=== PATIENT | female | born 2000 | race Caucasian/White ===

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

== ENCOUNTER 2019-08-25 22:24 | Inpatient (IN) ==
[2019-08-25 23:31] LABS: Basophils % 0.3 % (0.0-0.8); Eosinophils # 0.2 10*3/uL (0.0-0.87); Eosinophils % 1.6 % (0.00-10.9); Hematocrit 36.8 VOL% (35.7-47.0); Hemoglobin 11.7 GM/DL (12.0-16.0); Immature Granulocytes % 0.8 %; Immature Granulocytes Absolute 0.09 #; Lymphocytes # 2.2 10*3/uL (1.4-4.0); Lymphocytes % 19.7 % (21.3-54.2); Mean Corpuscular HGB Conc 31.8 GM/DL (32-36); Mean Corpuscular Volume 87.6 FL (87-102); Mean Platelet Volume 10.5 FL (9.6-12.0); Monocytes % 6.8 % (1.7-12.7); Neutrophils % 70.8 % (38.7-73.9); Platelet Count 240 T/CUMM (130-400); Red Cell Distribution Width 17.1 % (9.3-17.3); White Blood Count 10.9 T/CUMM (4-12)
[2019-08-26 00:04] LABS: Albumin 2.4 G/DL (3.4-5.0); Bilirubin,Direct 0.15 MG/DL (0.0-0.20); Bilirubin,Indirect 1.1 MG/DL (0.0-1.0); Bilirubin,Total 1.2 MG/DL (0.2-1.0); Total Protein 6.4 G/DL (6.4-8.3)
[2019-08-26 00:44] LABS: Albumin 2.3 G/DL (3.4-5.0); Bilirubin,Total 0.4 MG/DL (0.2-1.0); Calcium 8.7 MG/DL (8.5-10.1); Total Protein 6.4 G/DL (6.4-8.3); Uric Acid 3.4 MG/DL (2.6-6.0)
[2019-08-26] MEDS ORDERED: hydrOXYzine HCL 25 MG/1 ML VIAL IM PRN ×2 (01:11→16:42)
[2019-08-26] MEDS: LACTATED RINGERS 1,000 ML IV SCH ×3 (01:41→18:12)
[2019-08-26] MEDS ORDERED: LACTATED RINGERS 1,000 ML IV SCH (02:00)
[2019-08-26] MEDS: ONDANSETRON 4 MG/2 ML VIAL IV PRN ×2 (04:35→15:23)
[2019-08-26] MEDS ORDERED: OXYTOCIN/LR 20 UNIT/1,000 ML BAG IV ONE (08:03)
[2019-08-26] MEDS: OXYTOCIN/LR 20 UNIT/1,000 ML BAG IV SCH (08:22)
[2019-08-26] MEDS ORDERED: NIFEdipine 10 MG CAPSULE PO ONE (12:06)
[2019-08-26] MEDS ORDERED: BUTORPHANOL 1 MG/ML VIAL IV ONE (15:19)
[2019-08-26] MEDS ORDERED: NALOXONE 0.4 MG/ML VIAL IV PRN (16:42)
[2019-08-26] MEDS ORDERED: FAMOTIDINE 20 MG/2 ML VIAL IV ONE (16:42)
[2019-08-26] MEDS ORDERED: ONDANSETRON 4 MG/2 ML VIAL IV ONE (16:42)
[2019-08-26] MEDS ORDERED: PROMETHAZINE 25 MG/1 ML VIAL IM ONE (16:42)
[2019-08-26] MEDS ORDERED: diphenhydrAMINE 50 MG/1 ML VIAL IV PRN ×2 (16:42)
[2019-08-26] MEDS ORDERED: CITRIC ACID/SODIUM CITRATE 30 ML UDCUP PO ONE (16:42)
[2019-08-26] MEDS ORDERED: ePHEDrine 50 MG/ML AMP IV PRN (16:42)
[2019-08-26] MEDS ORDERED: fentaNYL 2 MCG/ROPIV 0.2% EPID 100 ML EPIDURAL SCH (17:00)
[2019-08-26 20:34] LABS: Apearance,Urine CLEAR (Clear); Bacteria,Urine Occasional /HPF (Few); Bilirubin,Urine Negative (Negative); Blood, Urine Negative (Negative); Glucose,Urine (UA) Negative (Negative); Ketones,Urine 20 mg/dL (Negative); Mucus,Urine Occasional /LPF (Occasional); Nitrite,Urine Negative (Negative); Protein,Urine Negative; RBC,Urine 1 /HPF (0-4); Squamous Epithelial Cell,Urine Occasional /HPF (0-10); Urine Color Amber (Yellow); Urine Specific Gravity 1.018 (1.001-1.035); Urine Urobilinogen < 2.0 EU/DL (0.2-1.0); WBC,Urine 2 /HPF (0-6)
[2019-08-27] MEDS: OXYTOCIN/LR 20 UNIT/1,000 ML BAG IV SCH (00:25)
[2019-08-27] MEDS ORDERED: ACETAMINOPHEN 500 MG TABLET PO ONE (04:44)
[2019-08-27] MEDS ORDERED: METHYLERGONOVINE 0.2 MG/1 ML AMP ONE (05:21)
[2019-08-27] MEDS ORDERED: CARBOPROST TROMETHAMINE 250 MCG/ML AMP IM ONE (05:21)
[2019-08-27] MEDS ORDERED: TRANEXAMIC ACID 1,000 MG/10 ML VIAL ONE (05:21)
[2019-08-27] MEDS ORDERED: miSOPROStoL 200 MCG TABLET ONE (05:21)
[2019-08-27] MEDS ORDERED: LIDOCAINE 1% 50 ML VIAL ONE (05:56)
[2019-08-27 06:14] LABS: Cord Arterial Blood HCO3 19.6 MMOL/L
[2019-08-27 06:15] LABS: Cord Venous Blood HCO3 18.6 MMOL/L; Cord Venous Blood PO2 35.8 MMHG
[2019-08-27] MEDS ORDERED: HYDROCORTISONE 2.5% RECTAL CREAM 30 GM TUBE TOP PRN (06:19)
[2019-08-27] MEDS ORDERED: BISACODYL 10 MG SUPP RECTAL PRN (06:19)
[2019-08-27] MEDS ORDERED: ACETAMINOPHEN 325 MG TABLET PO PRN (06:19)
[2019-08-27] MEDS ORDERED: DIPH/TET/ACEL PERT BOOSTER VACCINE 0.5 ML VIAL IM ONE (06:19)
[2019-08-27] MEDS ORDERED: OXYTOCIN/LR 20 UNIT/1,000 ML BAG IV ONE (06:19)
[2019-08-27] MEDS ORDERED: BENZOCAINE 20%/MENTHOL 0.5% SPRAY 56 GM CAN TOP PRN (06:19)
[2019-08-27] MEDS ORDERED: WITCH HAZEL PADS 100/JAR TOP PRN (06:19)
[2019-08-27] MEDS ORDERED: RHO(D) IMMUNE GLOBULIN 300 MCG SYRINGE IM ONE (06:19)
[2019-08-27] MEDS ORDERED: ONDANSETRON 4 MG/2 ML VIAL IV PRN (06:19)
[2019-08-27] MEDS ORDERED: LANOLIN 50% CREAM 0.3 OZ TUBE TOP PRN (06:19)
[2019-08-27] MEDS ORDERED: MEASLES/MUMPS/RUBELLA VACCINE 0.5 ML VIAL SUBCUT ONE (06:19)
[2019-08-27] MEDS: IBUPROFEN 800 MG TABLET PO PRN (07:28)
[2019-08-27] MEDS: DOCUSATE SODIUM 100 MG CAPSULE PO SCH ×2 (18:48→21:33)
[2019-08-27] MEDS: oxyCODONE/ACETAMINOPHEN 5-325 MG TABLET PO PRN (18:49)
[2019-08-28] MEDS: oxyCODONE/ACETAMINOPHEN 5-325 MG TABLET PO PRN ×3 (03:37→23:30)
[2019-08-28] MEDS: IBUPROFEN 800 MG TABLET PO PRN ×3 (03:37→20:30)
[2019-08-28 04:02] LABS: Basophils # 0.1 10*3/uL (0.0-0.2); Basophils % 0.4 % (0.0-0.8); Eosinophils # 0.2 10*3/uL (0.0-0.87); Eosinophils % 1.5 % (0.00-10.9); Hematocrit 29.7 VOL% (35.7-47.0); Hemoglobin 9.8 GM/DL (12.0-16.0); Immature Granulocytes % 1.1 %; Immature Granulocytes Absolute 0.15 #; Lymphocytes # 2.8 10*3/uL (1.4-4.0); Lymphocytes % 21.3 % (21.3-54.2); Mean Corpuscular Volume 85.6 FL (87-102); Mean Platelet Volume 10.7 FL (9.6-12.0); Monocytes % 8.1 % (1.7-12.7); Neutrophils % 67.6 % (38.7-73.9); Platelet Count 178 T/CUMM (130-400); Red Blood Count 3.47 MC/CUMM (3.8-5.5); Red Cell Distribution Width 17.2 % (9.3-17.3); White Blood Count 13.1 T/CUMM (4-12)
[2019-08-28] MEDS: DOCUSATE SODIUM 100 MG CAPSULE PO SCH ×2 (09:30→20:56)
[2019-08-29] MEDS ORDERED: ONDANSETRON 4 MG TABLET PO PRN (01:47)
[2019-08-29] MEDS: IBUPROFEN 800 MG TABLET PO PRN ×3 (02:19→21:50)
[2019-08-29] MEDS: DOCUSATE SODIUM 100 MG CAPSULE PO SCH ×2 (09:30→21:50)
[2019-08-29 11:27] LABS: Basophils # 0.1 10*3/uL (0.0-0.2); Basophils % 0.5 % (0.0-0.8); Eosinophils # 0.3 10*3/uL (0.0-0.87); Eosinophils % 2.5 % (0.00-10.9); Hemoglobin 10.3 GM/DL (12.0-16.0); Immature Granulocytes % 1.1 %; Immature Granulocytes Absolute 0.12 #; Lymphocytes # 1.9 10*3/uL (1.4-4.0); Lymphocytes % 17.6 % (21.3-54.2); Mean Corpuscular HGB Conc 32.2 GM/DL (32-36); Mean Corpuscular Volume 89.1 FL (87-102); Mean Platelet Volume 10.5 FL (9.6-12.0); Monocytes % 5.8 % (1.7-12.7); Neutrophils % 72.5 % (38.7-73.9); Platelet Count 205 T/CUMM (130-400); Red Blood Count 3.59 MC/CUMM (3.8-5.5); Red Cell Distribution Width 17.1 % (9.3-17.3); White Blood Count 10.7 T/CUMM (4-12)
[2019-08-29] MEDS: oxyCODONE/ACETAMINOPHEN 5-325 MG TABLET PO PRN ×2 (11:38→21:50)
[2019-08-29 11:44] LABS: Alanine Aminotransferase 438 U/L (13-56); Alkaline Phosphatase 157 U/L (45-117); Aspartate Amino Transferase 208 U/L (0-37); Bilirubin,Total < 0.39 MG/DL (0.2-1.0); Blood Urea Nitrogen 8 MG/DL (7-18); Calcium 8.8 MG/DL (8.5-10.1); Estimated Glom Filtration Rate 170 ML/MIN; Glucose 80 MG/DL (74-106); Osmolality,Calculated 273.5 MOS/KG (273-304); Total Protein 5.7 G/DL (6.4-8.3)
[2019-08-30 04:27] LABS: Albumin 1.9 G/DL (3.4-5.0); Bilirubin,Total 0.5 MG/DL (0.2-1.0); Calcium 8.6 MG/DL (8.5-10.1); Osmolality,Calculated 273.5 MOS/KG (273-304); Total Protein 5.3 G/DL (6.4-8.3)
[2019-08-30] MEDS ORDERED: cefOXitin 2,000 MG in SYRINGE 1 EACH IV ONE (08:06)
[2019-08-30] MEDS: DOCUSATE SODIUM 100 MG CAPSULE PO SCH (08:58)
[2019-08-30] MEDS ORDERED: TISSUE ADHESIVE 1 EACH APPLICATOR TOP ONE (09:26)
[2019-08-30] MEDS ORDERED: LIDOCAINE 1%/EPI INJ 20 ML VIAL ONE (09:26)
[2019-08-30] MEDS ORDERED: LACTATED RINGERS 1,000 ML IV SCH (10:00)
[2019-08-30] MEDS ORDERED: SUGAMMADEX 200 MG/2 ML VIAL IV ONE (10:38)
[2019-08-30] MEDS ORDERED: propofoL 200 MG/20 ML VIAL IV ONE (11:01)
[2019-08-30] MEDS ORDERED: SEVOFLURANE 1 UNIT/15 MINUTE INH ONE (11:01)
[2019-08-30] MEDS ORDERED: ONDANSETRON 4 MG/2 ML VIAL ONE ×2 (11:01→11:02)
[2019-08-30] MEDS ORDERED: HYDROmorphone 2 MG/1 ML VIAL ONE (11:01)
[2019-08-30] MEDS ORDERED: LIDOCAINE 2% 5 ML VIAL ONE (11:01)
[2019-08-30] MEDS ORDERED: fentaNYL 100 MCG/2 ML VIAL ONE (11:02)
[2019-08-30] MEDS ORDERED: SUCCINYLCHOLINE 200 MG/10 ML VIAL ONE (11:02)
[2019-08-30] MEDS ORDERED: MIDAZOLAM 2 MG/2 ML VIAL ONE (11:02)
[2019-08-30] MEDS ORDERED: PHENYLEPHRINE 1 MG/10 ML SYRINGE IV ONE (11:02)
[2019-08-30] MEDS ORDERED: ROCURONIUM 100 MG/10 ML VIAL IV ONE (11:02)
[2019-08-30] MEDS: HYDROmorphone 2 MG/1 ML VIAL IV PRN ×4 (11:05→11:40)
[2019-08-30] MEDS ORDERED: ONDANSETRON 4 MG/2 ML VIAL IV PRN (11:06)
[2019-08-30] MEDS: LACTATED RINGERS 1,000 ML IV SCH (11:19)
[2019-08-30] MEDS: oxyCODONE/ACETAMINOPHEN 5-325 MG TABLET PO PRN (12:48)
[2019-08-30] MEDS ORDERED: BENZOCAINE/MENTHOL LOZENGE 18/BOX PO PRN (14:48)
[2019-08-30 15:55] VITALS: BP 151/77
== END 2019-08-30 16:35 | disposition home or self-care (01) | DRG 560 ==
LOC: N.LDOUT 22:24 → N.LD 22:26 → N.OB 08-27 09:21
PROVIDERS: ADMIT Obstetrics & Gynecology; ATTEND Obstetrics & Gynecology
PROC: LAPCHOL (2019-08-30 09:53)